=== PATIENT | female | born 1990 | race Caucasian/White ===

== ENCOUNTER 2019-06-03 20:25 | Emergency (ER) | payer OTHER ==
[2019-06-03 20:56] LABS: Bilirubin Negative (Negative); Blood, Urine Trace (Negative); Clarity Clear (Clear); Glucose, Urine (Dipstick) Negative (Negative); Leukocyte Trace (Negative); Nitrite Negative (Negative); Protein, Urine (Dipstick) Negative (Neg-Trace); Urobilinogen 0.2 mg/dL (Less than 2)
[2019-06-03 20:57] LABS: Pregnancy Test - Urine (BHCG) Negative (Negative); Pregu Control Background? CLEAR/WHITE (CLR/WHITE); Pregu Control Bar Appear? YES (CONTROL BAR); Specific Gravity 1.019 (1.002-1.036)
[2019-06-03 21:06] LABS: RBC/HPF 0-3 HPF (0-3); Squamous Epithelial 0-3 HPF (0-3); Transitional Epithelial 0-3 HPF (None Seen); WBC/HPF 0-3 HPF (0-3)
[2019-06-03] MEDS ORDERED: Adacel (T-DAP) 0.5 ML SYRINGE ONE (21:06)
[2019-06-03] MEDS ORDERED: Ibuprofen 800 MG TAB ONE (21:41)
[2019-06-03] MEDS ORDERED: traMADol HCl 50 MG TAB ONE (21:41)
--- NOTE | 2019-06-03 21:45 | CT ---
CT OF THE FACIAL BONES 06/03/[address] of the face shows no evident fracture. The orbital rims, zygomatic arches, maxilla and sal ible all appeared intact. Retro-orbital areas are normal. The paranasal sinuses are clear except for some mucosa thickening in the left maxillary sinus. IMPRESSION: No acute traumatic findings. Findings called to Dr. Rico at [id number] on 06/03/19. POS: HOME
--- NOTE | 2019-06-03 21:48 | CT ---
CT OF THE BRAIN 06/03/[address] shows no intracranial bleeding or extra-axial hematoma. There is no sign of stroke, mass, or edema. The ventricles are normal in size. The skull appears intact and there is no air flui d level in the sphenoid sinus. The mastoid air cells are clear. Some minor swelling is seen over the right side of the forehead. IMPRESSION: No acute intracranial findings. Preliminary report called to Dr. Rico at [id number] on 06/03/19. POS: HOME
--- NOTE | 2019-06-03 21:49 | RAD ---
RIGHT ELBOW FOUR VIEWS 06/03/19 No fracture or joint effusion was seen. The joint appears normal. IMPRESSION: No acute finding. POS: HOME
[2019-06-03] MEDS ORDERED: Ondansetron ODT 4 MG TAB ONE (21:59)
[2019-06-03] MEDS ORDERED: diphenhydrAMINE 50 MG/ML VIAL ONE (21:59)
== END 2019-06-03 21:48 | disposition home or self-care (01) ==
LOC: BURERS 20:25
DX: S00.83XA Contusion of other part of head, initial encounter (principal); S50.01XA Contusion of right elbow, initial encounter; S60.511A Abrasion of right hand, initial encounter; V86.69XA Passenger of other special all-terrain or other off-road motor vehicle injured in nontraffic accident, initial encounter
CPT/HCPCS: 70450; 70486; 81003; 81015; 81025; 90471; 90715; 96372; J1200; Q0162

== ENCOUNTER 2020-11-23 00:08 | Emergency (ER) | payer OTHER ==
[2020-11-23] MEDS ORDERED: Dexamethasone 4 MG TAB ONE ×2 (00:22→00:23)
== END 2020-11-23 00:22 | disposition home or self-care (01) ==
LOC: BURERS 00:08
DX: T78.40XA Allergy, unspecified, initial encounter (principal); Z79.899 Other long term (current) drug therapy
CPT/HCPCS: 99283; J8540

== ENCOUNTER 2021-11-21 22:24 | Emergency (ER) | payer BC, OTHER | END 2021-11-21 22:51 | disposition home or self-care (01) | LOC: BURERS 22:24 | DX: T37.8X5A Adverse effect of other specified systemic anti-infectives and antiparasitics, initial encounter (principal); R07.0 Pain in throat; Z79.899 Other long term (current) drug therapy | CPT/HCPCS: 99282 ==

== ENCOUNTER 2023-07-17 22:26 | Emergency (ER) | payer SELFPAY | END 2023-07-17 22:57 | disposition home or self-care (01) | LOC: BURERS 22:26 | DX: L29.9 Pruritus, unspecified (principal) | CPT/HCPCS: 99282 ==